=== PATIENT | male | born 1940 | race Caucasian/White ===

== ENCOUNTER 2017-03-10 05:08 | Emergency (ER) | payer MEDICARE ==
--- NOTE | 2017-03-10 05:10 | NUR ---
PT DECIDED HE DID NOT WANT TO BE MEDICALLY EVALUATED AND LEFT THE ER
== END 2017-03-10 05:20 | disposition left against medical advice (07) ==
LOC: ER 05:12
DX: Z53.21 Procedure and treatment not carried out due to patient leaving prior to being seen by health care provider (principal)